=== PATIENT | male | born 1955 | race Caucasian/White ===

== ENCOUNTER 2016-08-01 23:45 | Emergency (ER) | payer MEDICARE ==
--- NOTE | ~2016-08-01 | EKG ---
PATIENT: KATHERINE PRO UNIT #: [id number] Ventricular Rate: 88 BPM Atrial Rate: 88 BPM P-R Interval: 128 ms QRS Duration: 78 ms Q-T Interval: 346 ms QTC Calculation(Bezet): 418 ms P [place]: 80 degrees Calculated R [place]: 81 degrees Calculated T [place]: 56 degrees Diagnosis Line: Normal sinus rhythm Diagnosis Line: Possible Left atrial enlargement Diagnosis Line: Borderline ECG Diagnosis Line: No previous ECGs available Diagnosis Line: Confirmed by KHANG BRENNER MD ([id number]) on Diagnosis Line: 08/02/2016 3:26:51 PM INTERPRETING MD: JORDIN MORGAN
--- NOTE | ~2016-08-01 | CR72 ---
[facility] A Service of [facility] RADIOLOGY TEXT RESULTS PATIENT: KATHERINE PRO LOCATION: [facility] : 51 UNIT #: [id number] AGE: [address]: Luca Nunez MD SEX: M ORDER DR: [id number] [facility]. [place], [place] [address] [id number] MR#: [id number] Acc #: [id number] NAME: KATHERINE PRO. : 1955 SEX: M STUDY DATE/TIME: 08/02/2016 0:30 UNIT: [facility] ROOM: STUDY DESCRIPTION: CR Chest Single View Portable Attending Physician: Luca Nunez Ordering Physician: Matias Rosa M.D. Primary Care Physician: Primary Care Physician No MEDICAL IMAGING REPORT This report is preliminary unless electronic signature is present EXAM AP portable chest DATE: 08/02/2016 at 00:30 HISTORY Left side chest pain and cough for 1 day. COMPARISON None. FINDINGS Faint opacity is demonstrated within the left lower lobe. Right lung has a somewhat nodular appearance measuring up to 5.7 cm. Right lung appears clear. No pleural effusion or pneumothorax is seen. Heart size is within normal limits. IMPRESSION 1. Approximate 5.7 cm nodular density in the left lower lobe. Findings could represent changes of pneumonia. Consider short-term chest radiograph followup after antibiotic therapy to document resolution. Dictated by... Odalis Deal M.D. THIS IS AN ELECTRONICALLY VERIFIED REPORT Odalis Deal M.D. at 08/02/2016 10:02 PM [facility]/claudette TD: 08/02/2016 07:06 JOB #: [id number] MEDICAL IMAGING REPORT [facility] A Service [facility] RADIOLOGY TEXT RESULTS PATIENT: KATHERINE PRO LOCATION: [facility] : 51 UNIT #: [id number] AGE: [address]: Luca Nunez MD SEX: M ORDER DR: COPY
[2016-08-02 01:24] LABS: BASOPHIL% 0.5 % (0-2.5); EOSINOPHIL# 0.1 X10e3 (0-0.7); EOSINOPHIL% 0.6 % (0.0-7.0); HEMATOCRIT 37.8 % (38.0-50.0); HEMOGLOBIN 13.1 gm/dL (13.0-16.0); LYMPHOCYTE# 1.4 X10e3 (1.0-3.5); LYMPHOCYTE% 15.8 % (17.0-45.0); MEAN CELL VOLUME 99.7 FL (83-96); MEAN CORPUSCULAR HEMOGLOBIN 34.6 PG (28-34); MEAN CORPUSCULAR HGB CONC 34.7 g/dL (30-36); MEAN PLATELET VOLUME 7.2 FL (6.5-11.5); MONOCYTE% 11.3 % (3.0-12.0); NEUTROPHIL# 6.4 X10e3 (1.5-7.1); NEUTROPHIL% 71.8 % (40-75); PLATELET COUNT 412 X10e3 (140-420); RED CELL DISTRIBUTION WIDTH 14.1 % (11.0-15.5)
[2016-08-02 01:26] LABS: DIFF IND NO
[2016-08-02 01:26] LABS: POC - CKMB 2.7 ng/mL (0.0-7.9); POC - TROPONIN <0.05 ng/mL (<=0.05)
[2016-08-02 01:31] LABS: INFLUENZA A NEG (NEG); INFLUENZA B NEG (NEG)
[2016-08-02 01:42] LABS: ALBUMIN SERUM 3.2 g/dL (3.5-5.0); ALKALINE PHOSPHATASE 84 U/L (32-92); ALT (SGPT) 29 U/L (10-40); AST (SGOT) 24 U/L (10-42); BILIRUBIN, DIRECT 0.1 mg/dL (0.0-0.2); BILIRUBIN,INDIRECT 0.1 mg/dL (0.0-0.9); BILIRUBIN,TOTAL 0.2 mg/dL (0.2-2.0); BLOOD UREA NITROGEN 7 mg/dL (9-23); BUN/CREATININE RATIO 8.75; CALCIUM SERUM 8.3 mg/dL (8.4-10.2); CARBON DIOXIDE 27 mmol/L (22-31); CHLORIDE 96 mmol/L (100-111); CREATININE SERUM 0.8 mg/dL (0.6-1.4); GLOM FILT RATE Estimated ABOVE60 mL/min (>60); GLUCOSE FASTING 120 mg/dL (70-110); POTASSIUM 3.3 mmol/L (3.5-5.1); PROTEIN TOTAL SERUM 7.4 g/dL (6.0-8.3); SODIUM 132 mmol/L (135-145)
[2016-08-02 02:43] LABS: POC - CKMB 5.2 ng/mL (0.0-7.9); POC - TROPONIN <0.05 ng/mL (<=0.05)
== END 2016-08-02 03:15 | disposition home or self-care (01) ==
LOC: CED 23:45
PROVIDERS: Emergency Medicine
DX: J18.9 Pneumonia, unspecified organism (principal); Z88.0 Allergy status to penicillin; F17.200 Nicotine dependence, unspecified, uncomplicated
CPT/HCPCS: 36415; 71010; 80048; 80076; 82553; 84484; 85025; 87804; 93005; 96365; 99284; J1956